=== PATIENT | male | born 1980 | race Hispanic/Latino ===

== ENCOUNTER 2016-12-26 20:08 | Inpatient (IN) | payer MEDICAID, OTHER ==
[2016-12-26 20:09] VITALS: BMI 20.3
[2016-12-26] MEDS ORDERED: Iohexol 240 (50 ml) ONE (20:40)
[2016-12-26] MEDS ORDERED: Iohexol 240 (50 ml) PO ONE (20:41)
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
[2016-12-26] MEDS ORDERED: Barium Sulfate Susp 2.1% w/v, 2.0% w/w 450 mL Bottle PO ONE ×3 (21:44→21:46)
[2016-12-26 22:11] LABS: BASO # 0.1 K/uL (0.0-0.2); BASO % 0.8 % (0.0-2.0); EOS # 0.2 K/uL (0.0-0.7); EOS % 2.8 % (0.0-4.0); HEMATOCRIT 42.1 % (35.0-51.0); LYMPH % 39.1 % (20.0-40.0); MEAN CELL VOLUME 96.2 fl (80.0-94.0); MEAN CORPUSCULAR HEMOGLOBIN 31.5 pg (27.0-31.0); MEAN CORPUSCULAR HGB CONC 32.8 g/dL (33.0-37.0); MEAN PLATELET VOLUME 7.2 fl (7.2-11.7); MONO # 0.7 K/uL (0.0-0.8); MONO % 8.8 % (0.0-10.0); NEUT # 3.8 K/uL (1.8-7.0); NEUT % 48.5 % (50.0-75.0); RED CELL DISTRIBUTION WIDTH 14.9 % (11.5-14.5); WHITE BLOOD COUNT 7.8 K/uL (4.8-10.8)
--- NOTE | 2016-12-26 22:15 | CT ---
EXAM: CT Head Without Intravenous Contrast CLINICAL HISTORY: 36 years old, male; Injury or trauma; Fall; Initial encounter; Concussion / head injury; Consciousness not specified; Injury details: S/P fall; Patient HX: ? ? ? TECHNIQUE: Axial computed tomography images of the head/brain without intravenous contrast. This CT exam was performed using one or more of the following dose reduction techniques: automated exposure control, adjustment of the mA and/or kV according to patient size, and/or use of iterative reconstruction technique. Coronal and sagittal reformatted images were created and reviewed. EXAM DATE/TIME: 12/26/2016 8:40 PM COMPARISON: CT HEAD OR BRAIN W/O CONT 09/29/2012 11:23:29 PM FINDINGS: No intracranial hemorrhage. No extra axial collections. No intracranial edema. No fluid in the sinuses or mastoid air cells. No depressed fractures. IMPRESSION: No acute intracranial injury.
[2016-12-26 22:23] LABS: ALB/GLOB RATIO 1.6 (1.0-2.1); ALCOHOL SERUM 240 mg/dl (0-10); ALKALINE PHOSPHATASE 71 U/L (38-126); ALT/SGPT 44 U/L (21-72); AST/SGOT 32 U/L (17-59); BILIRUBIN,TOTAL 0.1 mg/dl (0.2-1.3); BLOOD UREA NITROGEN 11 mg/dl (9-20); CALCIUM 8.9 mg/dL (8.4-10.2); CARBON DIOXIDE 24 mmol/L (22-30); CHLORIDE 106 mmol/L (98-107); GFR AFRICAN-AMERICAN > 60; GLUCOSE,RANDOM 85 mg/dL (75-110); LIPASE 88 U/L (23-300); POTASSIUM 3.6 MMOL/L (3.6-5.0); SODIUM 145 mmol/l (132-148)
--- NOTE | 2016-12-26 22:25 | CT ---
EXAM: CT Cervical Spine Without Intravenous Contrast CLINICAL HISTORY: 36 years old, male; Injury or trauma; Fall; Initial encounter; Blunt trauma; Additional info: S/P fall. TECHNIQUE: Axial computed tomography images of the cervical spine without intravenous contrast. This CT exam was performed using one or more of the following dose reduction techniques: automated exposure control, adjustment of the mA and/or kV according to patient size, and/or use of iterative reconstruction technique. Coronal and sagittal reformatted images were created and reviewed. EXAM DATE/TIME: 12/26/2016 8:41 PM COMPARISON: No relevant prior studies available. FINDINGS: Large anterior osteophyte formation C4-5 and posterior osteophyte formation C3-4. The vertebral bodies and facet joints are well aligned. The vertebral body height is well maintained. No subluxation. No fractures. The soft tissues appear grossly normal. IMPRESSION: No acute injury.
[2016-12-26 22:31] LABS: PARTIAL THROMBOPLASTIN TIME 33.8 Seconds (25.6-37.1)
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
[2016-12-27] MEDS ORDERED: Iohexol 300 100 ML IJ ONE (01:44)
[2016-12-27] MEDS ORDERED: Sodium Chloride 0.9% 50 ML IV ONE (01:44)
--- NOTE | 2016-12-27 03:25 | CT ---
EXAM: CT Abdomen and Pelvis With Intravenous Contrast CLINICAL HISTORY: 36 years old, male; Pain; Abdominal pain; Generalized; Additional info: Ruq pain S/P fall TECHNIQUE: Axial computed tomography images of the abdomen and pelvis with intravenous contrast. This CT exam was performed using one or more of the following dose reduction techniques: automated exposure control, adjustment of the mA and/or kV according to patient size, and/or use of iterative reconstruction technique. Coronal and sagittal reformatted images were created and reviewed. CONTRAST: 95 mL of [id number] administered intravenously. EXAM DATE/TIME: 12/26/2016 8:39 PM COMPARISON: No relevant prior studies available. FINDINGS: Minimal haziness in the right lower lung may represent dependent atelectasis, however it is asymmetric raising the possibility of very small superimposed pulmonary contusion. There are no abnormal areas of decreased attenuation in the liver, spleen, pancreas or kidneys to suggest organ injury. No free fluid. The gallbladder is contracted. No evidence of bowel injury.No free air. No fractures. IMPRESSION: Small right lower lung opacity as discussed above.
[2016-12-27 04:48] LABS: RBC URINE 6 /hpf (0-3); URINE BACTERIA RARE (<OCC); URINE BILIRUBIN NEGATIVE (NEGATIVE); URINE BLOOD NEGATIVE (NEGATIVE); URINE COLOR YELLOW (YELLOW); URINE GLUCOSE (UA) NEG (Normal); URINE KETONE TRACE mg/dL (NEGATIVE); URINE LEUKOCYTE ESTERASE NEG Leu/uL (Negative); URINE PROTEIN 30 mg/dL (NEGATIVE); URINE UROBILINOGEN 0.2-1.0 mg/dL (0.2-1.0); WBC URINE 2 /hpf (0-5)
[2016-12-27 04:49] VITALS: O2SAT 98
[2016-12-27] MEDS ORDERED: Alum-Mag Hydrox-Simethicone Susp (30 mL) PO PRN (06:17)
[2016-12-27] MEDS ORDERED: Magnesium Hydroxide Susp 30 ml UD PO PRN (06:17)
[2016-12-27] MEDS ORDERED: DiphenhydrAMINE 50 mg/ml Inj IM PRN (06:17)
[2016-12-27 08:54] LABS: T4 7.3 ug/dl (5.5-11.0)
[2016-12-27 09:08] LABS: THYROID STIMULATING HORMONE 0.53 mIU/ML (0.46-4.68)
[2016-12-27] MEDS: Multivitamin With Minerals Tab PO SCH (09:53)
--- NOTE | 2016-12-27 10:16 | RAD ---
HISTORY: trauma COMPARISON: Comparison made with subsequent CT scan abdomen 12/26/2016 at 02:01 hours which also image the lung bases. Comparison also made with chest radiograph 02/18/2013 FINDINGS: LUNGS: Mild atelectasis in the right lung base seen on CT scan not appreciated on this study PLEURA: No significant pleural effusion identified, no pneumothorax apparent. CARDIOVASCULAR: Normal. OSSEOUS STRUCTURES: No significant abnormalities. VISUALIZED UPPER ABDOMEN: Normal. OTHER FINDINGS: None. IMPRESSION: Mild atelectasis in the right lung base seen on CT scan not appreciated on this study
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
[2016-12-27 14:05] LABS: AMYLASE 70 U/L (30-110); LIPASE 44 U/L (23-300)
--- NOTE | 2016-12-27 15:56 | PCM.PYCHPN ---
Mental Status Examination - Homicidal Ideation Homicidal Ideation: No
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
[2016-12-28] MEDS: Multivitamin With Minerals Tab PO SCH (09:17)
--- NOTE | 2016-12-28 17:03 | PCM.PYCHPN ---
Psychiatric Progress Note - Psychiatric Progress Note Patient seen today, length of contact: chart reviewed case discussed with tem Patient Chief Complaint: reports that continues to hear voices, feeling paranoid. current dose of seroquel not working previously taking 300mg po hs. has submitted 48 hour notice admits concern about working new job thursday-does not want to miss work. expresses concern about missing opportunity to claim section which was recently granted. reports keeps to self does want to get involved with issues on unit. staff report pt has been adherent with medications. Problems Identified/Issues Discussed: mood cognitive changes impulsive behavior Medical Problems: per chart Diagnostic Results: per psychiatry per medicine per nursing ' per social science professor DSM 5 Symptoms Update: alteration in mood alteration in coping impulsive behavior Medication Change: Yes (increase seroqeul to 250mg po hs and start 50mg po am per pt request ) Medical Record Reviewed: Yes Mental Status Examination - Cognitive Function Orientation: Person, Place, Situation, Time Attention: WNL Concentration: WNL Association: WNL Fund of Knowledge: WN Decription of patient's judgement and insights: impaired - Mood Mood: Depressed - Affect Affect: Constricted - Formal Thought Process Formal Thought Process: Hallucinations, Paranoia - Homicidal Ideation Homicidal Ideation: No Goal/Treatment Plan - Goal/Treatment Plan Progress Toward Problem(s) and Goals/Treatment Plan: admission per attending md vital signs per protocol and per clinical status hospitalist consult increase seroquel to 250 po hs and start seroquel 50mg po am-pt reports day time anxiety at times seeking prn lorazepam review with pt possible daytime somnolence particularly in light of report job-pt verbally agreeble reports being a smoker-nicotine patch 21 topically am remove pm alcohol withdrawal protocol discharge planning in progress Estimated Date of D/C: 12/29/16 - Smoking Cessation Smoking Cessation Initiated: Yes Reason for not providing: pt deferred
[2016-12-29] MEDS: Multivitamin With Minerals Tab PO SCH (08:48)
[2016-12-29 10:43] VITALS: RESP 18
--- NOTE | 2016-12-29 12:25 | PCM.PYCHPN ---
Psychiatric Progress Note - Psychiatric Progress Note Patient seen today, length of contact: in treatment team Patient Chief Complaint: i feel ok Problems Identified/Issues Discussed: pt states he only stated he was suicidal to get into the hospital and get restarted on his medications. states that he stopped hearing voices yesterday and that he feels positive about his future- states he now has a [employer] voucher and can look for housing, has treatment providers. he is willing to stay until tomorrow morning for another day of treatment/observation. he minimizes past suicide attempts. Medication Change: No ( ) Medical Record Reviewed: Yes Mental Status Examination - Cognitive Function Orientation: Person, Place, Situation, Time Memory: Intact Attention: WNL Concentration: WNL Association: [facility] Fund of Knowledge: [facility] Decription of patient's judgement and insights: fair - Mood Mood: Neutral - Affect Affect: Constricted - Speech Speech: Appropriate - Formal Thought Process Formal Thought Process: No Impairment Psychotic Thoughts and Behaviors: denies any a/v hallucinations - Suicidal Ideation Suicidal Ideation: No - Homicidal Ideation Homicidal Ideation: No Goal/Treatment Plan - Goal/Treatment Plan Need for Continued Stay: Remain at risks for inpatient hospitalization, Discharge may exacerbated symptoms Progress Toward Problem(s) and Goals/Treatment Plan: schizoaffective disorder continue current treatment discharge tomorrow Estimated Date of D/C: 12/29/16
[2016-12-30 09:10] VITALS: BP 125/78; PULSE 85; TEMP 98.1
[2016-12-30] MEDS: Multivitamin With Minerals Tab PO SCH (09:14)
--- NOTE | 2016-12-30 12:36 | PCM.PYCHDC ---
Mental Status Examination - Mental Status Examination Orientation: Person, Place, Situation, Time Memory: Intact Mood: Neutral Affect: Broad Speech: Appropriate Attention: WNL Concentration: WNL Association: WNL Fund of Knowledge: WNL Formal Thought Process: No Impairment Description of patient's judgement and insight: fair Psychotic Thoughts and Behaviors: denies any a/v hallucinations today. Suicidal Ideation: No Current Homicidal Ideation?: No Plan: pt denies any suicidal or homicidal thoughts/plans or intent Discharge Summary - Discharge Note Reason for Hospitalization: pt reported he was off medications and having suicidal thoughts Psychiatric History (includes Medical, Family, Personal Hx): history of schizoaffective disorder Consultations:: List each consultation separately and include: 1. Reason for request. 2. Findings. 3. Follow-up Consultations: seen by the hospitalist Summary of Hospital Course include:: 1. Description of specific treatment plan utilized for patients during their course of treatmen. 2. Summarize the time- course for resolution of acute symptoms and/or regressed behaviors. 3. Describe issues identified and worked on during hospitalization. 4. Describe medication utilized. 5. Describe medical problems identified and treated. 6. Reassessment of suicide risk Summary of Hospital Course: pt was admitted to [facility] and oriented to the unit. pt was placed on routine safety protocols. pt was started on his home medications. he stated he was not feeling suicidal, but just reported this in the ER because he knew he needed to be restarted on his medications. he was agreeable to following up with his treatment providers at [facility] and was future oriented regarding his housing. he was also looking forward to returning to work, as he stated he did better when he was busy. at time of discharge he was denying any suicidal or homicidal thoughts/plans or intent - Final Diagnosis (DSM 5) Condition upon Discharge: STABLE DSM 5: schizoaffective disorder Disposition: HOME/ ROUTINE Follow-up Treatment Plan: follow up with aftercare as directed take medications as prescribed do not use alcohol, tobacco or other illicit substances call 911 if any suicidal or homicidal thoughts Prescriptions/Medication Reconciliation: buPROPion [Wellbutrin] 75 mg PO DAILY #30 tab Folic Acid 1 mg PO DAILY #30 tab Multimineral/Multivitamin [Therapeutic-M Tab] 1 tab PO DAILY #30 tab Nicotine 21 mg/24 hr [Nicoderm Cq] 1 patch TD DAILY #30 patch QUEtiapine [SEROquel] 50 mg PO DAILY #30 tab Quetiapine Fumarate [Seroquel] 300 mg PO HS #30 tablet Thiamine [Vitamin B1 Tab] 100 mg PO DAILY #30 tab traZODone [Desyrel] 50 mg PO HS PRN #30 tab PRN Reason: Insomnia - Smoking Cessation Smoking Cessation Medication prescribed: Yes - Antipsychotic Medications Pt discharged on 2 or more routine antipsychotic medications: No
== END 2016-12-30 10:55 | disposition home or self-care (01) | DRG 430 ==
LOC: H.ER 20:08 → H.EROBSV 20:40 → H.ERHOLD 12-27 04:58 → OBSVTOIN 12-27 04:58 → H.PSYCH 12-27 06:12
PROVIDERS: ADMIT Psychiatry & Neurology Psychiatry; ATTEND Psychiatry & Neurology Psychiatry
PROC: GZHZZZZ Group Psychotherapy (ICD-10-PCS; principal; 2016-12-27)
DX: F25.9 Schizoaffective disorder, unspecified (principal); S27.321A Contusion of lung, unilateral, initial encounter; R45.851 Suicidal ideations; Z59.0 Homelessness; F17.200 Nicotine dependence, unspecified, uncomplicated; J45.909 Unspecified asthma, uncomplicated; Y92.9 Unspecified place or not applicable; Z72.89 Other problems related to lifestyle; Y90.8 Blood alcohol level of 240 mg/100 ml or more

== ENCOUNTER 2017-01-30 04:49 | Emergency (ER) | payer MEDICAID, OTHER ==
[2017-01-30 04:50] VITALS: BMI 20.3
[2017-01-30 04:57] VITALS: TEMP 97.4
[2017-01-30 06:04] LABS: BASO % 0.6 % (0.0-2.0); EOS # 0.1 K/uL (0.0-0.7); EOS % 1.5 % (0.0-4.0); HEMOGLOBIN 14.3 g/dL (12.0-18.0); LYMPH # 1.5 K/uL (1.0-4.3); LYMPH % 24.9 % (20.0-40.0); MEAN CELL VOLUME 95.6 fl (80.0-94.0); MEAN CORPUSCULAR HEMOGLOBIN 31.9 pg (27.0-31.0); MEAN CORPUSCULAR HGB CONC 33.4 g/dL (33.0-37.0); MEAN PLATELET VOLUME 7.3 fl (7.2-11.7); MONO # 0.3 K/uL (0.0-0.8); MONO % 4.7 % (0.0-10.0); NEUT # 4.1 K/uL (1.8-7.0); NEUT % 68.3 % (50.0-75.0); NRBC % 0.1 % (0.0-0.0); RBC 4.48 Mil/uL (4.40-5.90); RED CELL DISTRIBUTION WIDTH 15.5 % (11.5-14.5); WHITE BLOOD COUNT 6.1 K/uL (4.8-10.8)
[2017-01-30 06:12] LABS: ALB/GLOB RATIO 1.6 (1.0-2.1); ALBUMIN 4.1 g/dL (3.5-5.0); ALT/SGPT 41 U/L (21-72); AST/SGOT 21 U/L (17-59); BLOOD UREA NITROGEN 11 mg/dl (9-20); CALCIUM 8.5 mg/dL (8.4-10.2); GFR AFRICAN-AMERICAN > 60; GFR NON-AFRICAN AMERICAN > 60; LIPASE 60 U/L (23-300)
[2017-01-30 06:16] LABS: BARBITURATES, UR NEGATIVE (NEGATIVE); BENZODIAZEPINES, UR NEGATIVE (NEGATIVE); OPIATES, UR NEGATIVE (NEGATIVE); PHENCYCLIDINE, UR NEGATIVE (NEGATIVE)
--- NOTE | 2017-01-30 06:27 | ED PDOC ---
HPI: Abdomen Time Seen by Provider: 01/30/17 05:04 Chief Complaint (Nursing): Abdominal Pain Chief Complaint (Provider): Abdominal Pain History Per: Patient History/Exam Limitations: no limitations Onset/Duration Of Symptoms: Hrs Outside of [place] travel?: No Current Symptoms Are (Timing): Still Present Severity: Mild Location Of Pain/Discomfort: Epigastric Associated Symptoms: Nausea, Vomiting, Back Pain. denies: Fever, Diarrhea, Chest Pain Additional Complaint(s): 36 y/o male patient presenting to the ED with vomiting and abdominal pain he states began last week. PT states the pain is Epigastric in addition to vomiting several times and having nausea. PT denies fever, rectal bleeding, chest pain or diarrhea and states he has taken nothing for the pain because he thinks he has an allergy to Tylenol but he did have a "little" alcohol last night. Patient also states he has right side back pain radiating down to his right leg due to his Sciatica. Past medical history includes heroin abuse which he states he last used two weeks ago and arm surgery. The Patient has no PCP and no longer goes to the pain management clinic. Past Medical History Reviewed: Historical Data, Nursing Documentation, Vital Signs Vital Signs: Last Vital Signs Temp 97.4 F L 01/30/17 04:55 Pulse 90 01/30/17 04:55 Resp 18 01/30/17 04:55 BP 104/68 01/30/17 04:55 Pulse Ox 98 01/30/17 06:39 - Medical History PMH: Anxiety, Asthma, Bipolar Disorder, Bronchitis, Depression (with suicide attempt since childhood (attempted hanging)), Hepatitis (C), Personality Disorder, Schizophrenia Denies: Diabetes, HIV, HTN, Chronic Kidney Disease, Seizures, Sexually Transmitted Disease Other PMH: (+)Sciatica - Family History Family History: States: Unknown Family Hx - Social History Current smoker - smoking cessation education provided: No Alcohol: None Drugs: Opiates ((+)Heroin) - Immunization History Hx Tetanus Toxoid Vaccination: No Hx Influenza Vaccination: No Hx Pneumococcal Vaccination: No - Home Medications Home Medications: Ambulatory Orders Medication Instructions Recorded Folic Acid 1 mg PO DAILY #30 tab 12/30/16 Multimineral/Multivitamin 1 tab PO DAILY #30 tab 12/30/16 [Therapeutic-M Tab] Nicotine 21 mg/24 hr [Nicoderm Cq] 1 patch TD DAILY #30 patch 12/30/16 QUEtiapine [SEROquel] 50 mg PO DAILY #30 tab 12/30/16 Quetiapine Fumarate [Seroquel] 300 mg PO HS #30 tablet 12/30/16 Thiamine [Vitamin B1 Tab] 100 mg PO DAILY #30 tab 12/30/16 buPROPion [Wellbutrin] 75 mg PO DAILY #30 tab 12/30/16 traZODone [Desyrel] 50 mg PO HS PRN #30 tab 12/30/16 - Allergies Allergies/Adverse Reactions: Allergies Allergy/AdvReac Type Severity Reaction Status Date / Time aspirin Allergy RASH Verified 01/30/17 05:03 Review of Systems ROS Statement: Except As Marked, All Systems Reviewed And Found Negative Constitutional: Negative for: Fever Cardiovascular: Negative for: Chest Pain Respiratory: Negative for: Shortness of Breath Gastrointestinal: Positive for: Nausea, Vomiting, Abdominal Pain. Negative for : Diarrhea, Hematochezia Musculoskeletal: Positive for: Back Pain ((+)Right side) Physical Exam - Reviewed Nursing Documentation Reviewed: Yes Vital Signs Reviewed: Yes - Physical Exam Appears: Positive for: Non-toxic, No Acute Distress Head Exam: Positive for: ATRAUMATIC, NORMAL INSPECTION, NORMOCEPHALIC Skin: Positive for: Normal Color, Warm, Dry Eye Exam: Positive for: Normal appearance, EOMI, PERRL Neck: Positive for: Normal, Painless ROM, Supple Cardiovascular/Chest: Positive for: Regular Rate, Rhythm. Negative for: Chest Non Tender, Murmur Respiratory: Positive for: Normal Breath Sounds. Negative for: Wheezing, Respiratory Distress Gastrointestinal/Abdominal: Positive for: Normal Exam, Soft, Tenderness ((+) Epigastric), Other ((-)Deformity). Negative for: Distended Back: Positive for: Normal Inspection. Negative for: Decreased ROM Extremity: Positive for: Normal ROM. Negative for: Tenderness Neurologic/Psych: Positive for: Alert, Oriented. Negative for: Motor/Sensory Deficits - Laboratory Results Result Diagrams: 01/30/17 05:44 01/30/17 05:44 - ECG O2 Sat by Pulse Oximetry: 98 (RA) Pulse Ox Interpretation: Normal Medical Decision Making Medical Decision Making: Time: 532 Initial impression: Abdominal pain and back pain. Diff include Gastritis, Small Bowel Obstruction, pancreatitis, as well as Acute and Chronic Sciatica Pain. Alcohol Intoxication Initial plan: --ABDOMEN AND PELVIS CT --ED URINE DIPSTICK --ACETAMINOPHEN --FAMOTIDINE --ONDANSETRON --IV INSERTION Scribe Attestation: Documented by Maile Ramon, acting as a scribe for Mello Irizarry MD MD Scribe Attestation: All medical record entries made by the Scribe were at my direction and personally dictated by me. I have reviewed the chart and agree that the record accurately reflects my personal performance of the history, physical exam, medical decision making, and the department course for this patient. I have also personally directed, reviewed, and agree with the discharge instructions and disposition. Disposition - Clinical Impression Clinical Impression: Abdominal pain, Sciatic pain, Alcohol intoxication - Patient ED Disposition Is Patient to be Admitted: No Doctor Will See Patient In The: Office Counseled Patient/Family Regarding: Studies Performed, Diagnosis, Need For Followup - Disposition Disposition: Transfer of Care Disposition Time: 07:00 Condition: FAIR Patient Signed Over To: Horacio Navarro Handoff Comments: pending CT abdomen
[2017-01-30] MEDS ORDERED: Sodium Chloride 0.9% 50 ML IV ONE (06:42)
[2017-01-30] MEDS ORDERED: Iohexol 300 100 ML IJ ONE (06:42)
--- NOTE | 2017-01-30 07:30 | ED PDOC ---
- Laboratory Results Result Diagrams: 01/30/17 05:44 01/30/17 05:44 - ECG O2 Sat by Pulse Oximetry: 98 (RA) Pulse Ox Interpretation: Normal - Progress Re-evaluation Time: :52 Condition: Improved Medical Decision Making Medical Decision Makin:00 Patient was signed out to me by Mello Irizarry MD pending CT abdomen, reevaluation and final disposition. Scribe Attestation: Documented by Maryuri Limon, acting as a scribe for Horacio Naavrro MD. Provider Scribe Attestation: All medical record entries made by the Scribe were at my direction and personally dictated by me. I have reviewed the chart and agree that the record accurately reflects my personal performance of the history, physical exam, medical decision making, and the department course for this patient. I have also personally directed, reviewed, and agree with the discharge instructions and disposition. Disposition - Clinical Impression Clinical Impression: Abdominal pain, Sciatic pain, Alcohol intoxication - POA Present On Arrival: None - Disposition Referrals: [facility] [Outside] Disposition: Routine/Home Disposition Time: 07:52 Condition: FAIR Prescriptions: Famotidine [Pepcid] 20 mg PO Q12 #20 tab Instructions: Gastritis (ED)
--- NOTE | 2017-01-30 07:34 | CT ---
PROCEDURE: CT Abdomen and Pelvis with contrast HISTORY: abdominal pain vomiting COMPARISON: Prior abdomen and pelvis CT with contrast 12/27/2016. TECHNIQUE: Contrast dose: Omnipaque 300, 90 cc Radiation dose: Total exam DLP = 685 mGy-cm. This CT exam was performed using one or more of the following dose reduction techniques: Automated exposure control, adjustment of the mA and/or kV according to patient size, and/or use of iterative reconstruction technique. FINDINGS: LOWER THORAX: Trace linear atelectasis or fibrosis in the right base once again. LIVER: Unremarkable. No gross lesion or ductal dilatation. GALLBLADDER AND BILE DUCTS: Unremarkable. PANCREAS: Unremarkable. No gross lesion or ductal dilatation. SPLEEN: Unremarkable. ADRENALS: Unremarkable. No mass. KIDNEYS AND URETERS: Unremarkable. No hydronephrosis. No solid mass. VASCULATURE: Unremarkable. No aortic aneurysm. BOWEL: Collapsed descending colon related mural thickening versus intrinsic mural edema. Further clinical correlation is advised No obstruction. APPENDIX: Not identified. No CT evidence to suggest appendicitis at this time. PERITONEUM: Unremarkable. No free fluid. No free air. LYMPH NODES: Unremarkable. No enlarged lymph nodes. BLADDER: Unremarkable. REPRODUCTIVE: Unremarkable. BONES: No acute fracture. OTHER FINDINGS: None. IMPRESSION: The appearance of the descending colonic mural thickening is probably a function of collapse rather than intrinsic inflammatory or infectious edema. Clinically correlate nevertheless. No ascites or pericolic reaction. Remainder the examination appears unremarkable.
[2017-01-30 07:59] VITALS: BP 110/70; PULSE 82; RESP 16; O2SAT 99
== END 2017-01-30 07:59 | disposition home or self-care (01) ==
LOC: H.ER 04:49
DX: R10.9 Unspecified abdominal pain (principal); F10.129 Alcohol abuse with intoxication, unspecified; M54.30 Sciatica, unspecified side; F31.9 Bipolar disorder, unspecified; F41.9 Anxiety disorder, unspecified; J45.909 Unspecified asthma, uncomplicated; K85.90 Acute pancreatitis without necrosis or infection, unspecified